=== PATIENT | female | born 1950 | race Two or more races ===

== ENCOUNTER → 2021-04-21 | Outpatient (CLI) | payer OTHER | END | disposition home or self-care (01) | LOC: SONOGRAMA 08:56 | PROVIDERS: ATTEND Obstetrics & Gynecology | DX: K80.80 Other cholelithiasis without obstruction (principal); Q61.8 Other cystic kidney diseases; N13.39 Other hydronephrosis; N60.11 Diffuse cystic mastopathy of right breast; N60.12 Diffuse cystic mastopathy of left breast ==

== ENCOUNTER 2021-05-02 13:21 | Outpatient (CLI) | payer OTHER | END 2021-05-02 13:26 | disposition home or self-care (01) | LOC: NUCLEAR 13:21 | PROVIDERS: ATTEND Obstetrics & Gynecology | DX: M81.0 Age-related osteoporosis without current pathological fracture (principal) ==

== ENCOUNTER 2021-06-22 14:41 | Outpatient (CLI) | payer OTHER | END 2021-06-22 14:43 | disposition home or self-care (01) | LOC: LAB 14:41 | PROVIDERS: ATTEND Radiology Diagnostic Radiology | DX: R19.5 Other fecal abnormalities (principal) ==

== ENCOUNTER 2021-06-29 09:26 | Outpatient (CLI) | payer OTHER | END 2021-06-29 09:31 | disposition home or self-care (01) | LOC: TOM 09:26 | PROVIDERS: ATTEND Internal Medicine Gastroenterology | DX: K76.0 Fatty (change of) liver, not elsewhere classified (principal); Q61.01 Congenital single renal cyst; R19.5 Other fecal abnormalities; K62.5 Hemorrhage of anus and rectum; K80.80 Other cholelithiasis without obstruction; K57.90 Diverticulosis of intestine, part unspecified, without perforation or abscess without bleeding ==

== ENCOUNTER 2021-07-25 10:33 | Outpatient (CLI) | payer OTHER | END 2021-07-25 10:41 | disposition home or self-care (01) | LOC: SONOGRAMA 10:33 | DX: N84.0 Polyp of corpus uteri (principal) ==

== ENCOUNTER → 2021-07-25 12:09 | Outpatient (CLI) | payer OTHER | END | disposition home or self-care (01) | LOC: LAB 12:09 | PROVIDERS: ATTEND Obstetrics & Gynecology | DX: C56.1 Malignant neoplasm of right ovary (principal) ==

== ENCOUNTER 2021-08-22 11:45 | Inpatient (IN) | payer OTHER ==
[~2021-08-22] VITALS: Ht 152.4 cm; Wt 73.5 kg
[2021-08-22] MEDS ORDERED: MULTIPLE VITAM1 EAC2 PO (15:20)
[2021-08-22] MEDS ORDERED: CALTRATE GUMMY1 EACH PO (15:21)
[2021-08-24] MEDS ORDERED: ALENDRONATE SOD70 MG (13:47)
[2021-08-24] MEDS ORDERED: MAXIMUM D3325 MCG (13:47)
== END 2021-08-25 18:45 | disposition home or self-care (01) | DRG 334 ==
LOC: O/R 08-24 09:52 → SURH 08-24 11:45 → SURG 08-24 18:44
PROVIDERS: ADMIT Surgery; ATTEND Surgery
PROC: 3E0T3BZ Introduction of Anesthetic Agent into Peripheral Nerves and Plexi, Percutaneous Approach (ICD-10-PCS; 2021-08-24)
PROC: 0DBP4ZZ Excision of Rectum, Percutaneous Endoscopic Approach (ICD-10-PCS; principal; 2021-08-24 17:15)
DX: D12.8 Benign neoplasm of rectum (principal); Z20.822 Contact with and (suspected) exposure to COVID-19; K62.82 Dysplasia of anus

== ENCOUNTER 2021-10-10 13:31 | Outpatient (CLI) | payer OTHER ==
[~2021-10-10 13:31] MED LIST: ALENDRONATE SOD70 MG; CALTRATE GUMMY1 EACH PO; MAXIMUM D3325 MCG; MULTIPLE VITAM1 EAC2 PO
== END 2021-10-10 13:38 | disposition home or self-care (01) ==
LOC: RAD 13:31
PROVIDERS: ATTEND Obstetrics & Gynecology
DX: Z01.811 Encounter for preprocedural respiratory examination (principal)

== ENCOUNTER 2021-11-04 08:47 | Outpatient (CLI) | payer OTHER | END 2021-11-04 08:49 | disposition home or self-care (01) | LOC: SONOGRAMA 08:47 | PROVIDERS: ATTEND Obstetrics & Gynecology | DX: N13.0 Hydronephrosis with ureteropelvic junction obstruction (principal); N81.11 Cystocele, midline ==

== ENCOUNTER 2021-11-28 10:39 | Outpatient (CLI) | payer OTHER | END 2021-11-28 10:40 | disposition home or self-care (01) | LOC: RAD 10:39 | PROVIDERS: ATTEND Obstetrics & Gynecology | DX: Z01.811 Encounter for preprocedural respiratory examination (principal) ==